=== PATIENT | male | born 1995 | race Caucasian/White ===

== ENCOUNTER 2023-12-19 15:39 | Emergency (ER) | payer SELFPAY ==
[2023-12-19 15:45] VITALS: BP 148/77; PULSE 68; RESP 14; TEMP 36.9; O2SAT 98; BMI 23.7
--- NOTE | 2023-12-19 15:46 | XRR_ITS ---
PROCEDURE INFORMATION: Exam: XR Right Ankle Exam date and time: 12/19/2023 5:42 PM Age: 28 years old Clinical indication: Pain; Ankle; Right; Additional info: Right ankle pain TECHNIQUE: Imaging protocol: Radiologic exam of the right ankle. Views: 3 or more views. COMPARISON: No relevant prior studies available. FINDINGS: Bones/joints: Normal. Soft tissues: Soft tissue swelling along the lateral ankle. XR/XR ankle RT min 3V* [id number] IMPRESSION: No acute osseous abnormalities.
--- NOTE | 2023-12-19 23:17 | ED_ITS ---
HPI - Extremity Problem General: Chief complaint: Extremity Injury, Lower Stated complaint: right ankle pains Time Seen by Provider: 12/19/23 15:56 History of Present Illness: Patient is in today for right ankle pain. He reports that he was stepping on a rock in his ankle rolled to the side. He reports that he is able to bear weight on it but he did hear a pop when it happens and there has been a lot of swelling. Associated symptoms: Deny fever(s) Review of Systems Const: Denies: fever(s) or chills Musc: Reports: joint pain and joint swelling Physical Exam Const: COMMON NORMALS: no acute distress, patient oriented x3, healthy appea ring and alert Resp: COMMON NORMALS: normal respiratory effort and No use of accessory muscles Extremity: OTHER: There is tenderness to palpation lateral malleolus right side with moderate soft tissue swelling. No obvious bony deformity appreciated. No bruising appreciated. Range of motion is limited by pain however patient is able to bear weight on the foot. Neuro: COMMON NORMALS: patient oriented x3 SENSORIUM/ORIENTATION: Yes alert Course Vital Signs: Vital signs: Vital Signs Temperature 98.4 F 12/19/23 15:45 Pulse Rate 68 12/19/23 15:45 Respiratory Rate 14 12/19/23 15:45 Blood Pressure 148/77 12/19/23 15:45 Pulse Oximetry 98 12/19/23 15:45 Oxygen Delivery Me thod Room Air 12/19/23 15:45 MDM - Extremity (Nontraumatic) Medical Decision Making Consider sprain versus fracture X-ray 3 view ankle wet read: No acute osseous deformity Radiologist interpretation no osseous abnormality Will treat patient conservatively for a sprain. Adelso wrap and crutches. Limit weightbearing for the next 3 days then slowly advance as tolerated. Follow-up in the ER as needed for new or worsening symptoms Lab Data Radiology Impressions Ankle X-Ray 12/19/23 15:46 IMPRESSION: No acute osseous abnormalities. All radiology interpretation(s) finalized by discharge Discharge Plan Discharge Patient Disposition: Home Clinical Impression: Ankle sprain and strain Condition: Stable Discharge Orders: Discharge ED (Routine); Ordered 12/19/23 Ordered By: Mackenzie Ramos Discharge Diet: Usual diet Discharge Activity: Limit activity as instructed Patient Instructions: Ankle Sprain (ED) Activity Restrictions/Additional Instructions: Limit weightbearing for 3 days using crutches. Ice, rest, elevate the extremity. Tylenol and Motrin as needed. After 3 days start advancing weightbearing as tolerated. Follow-up with your primary care provider as needed. Return to ER for new or worsening symptoms. Stand Alone Forms: Work/School Release Coding Level of Care Code ED News Copy Editor for Dejan Carvajal
== END 2023-12-19 18:35 | disposition home or self-care (01) ==
PROVIDERS: Emergency Provider Nurse Practitioner Family
DX: S93.401A Sprain of unspecified ligament of right ankle, initial encounter (principal); S96.911A Strain of unspecified muscle and tendon at ankle and foot level, right foot, initial encounter; X50.1XXA Overexertion from prolonged static or awkward postures, initial encounter
CPT/HCPCS: 73610; 99283; E0114

== ENCOUNTER 2024-04-20 16:31 | Outpatient (CLI) | payer BC, SELFPAY ==
--- NOTE | 2024-04-20 16:46 | XR_ITS ---
WS: [id number] XR ankle RT min 3V* [id number] REASON FOR EXAM: ANKLE PAIN, RIGHT FINDINGS: There appears to be mild soft tissue swelling over the lateral malleolus. No fracture or focal bone lesion. Joint spaces of the right ankle are intact and well preserved. XR/XR ankle RT min 3V* [id number] IMPRESSION: Soft tissue swelling with no bone or joint abnormality identified.
== END 2024-04-20 16:32 | disposition home or self-care (01) ==
LOC: RAD 16:34
PROVIDERS: PCP Nurse Practitioner Family; Visit Provider Nurse Practitioner Family
DX: R22.41 Localized swelling, mass and lump, right lower limb (principal)
CPT/HCPCS: 73610

== ENCOUNTER → 2024-05-06 10:06 | Outpatient (BNVA) | payer BC, MEDICAID, SELFPAY | PROVIDERS: PCP Nurse Practitioner Family; Visit Provider Podiatrist Foot & Ankle Surgery | DX: M25.571 Pain in right ankle and joints of right foot (principal); M95.8 Other specified acquired deformities of musculoskeletal system | CPT/HCPCS: 73610 ==